=== PATIENT | female | born 1945 | race Caucasian/White ===

== ENCOUNTER 2016-06-20 05:26 | Day surgery (SDC) | payer MEDICARE, BC ==
[~2016-06-20] VITALS: Ht 167.6 cm; Wt 64.8 kg
[~2016-06-20 05:26] MED LIST: CIPRO 500MG TA500 MG PO; CIPRO PO; NO HOME MEDICATIONS; NORCO 325 MG-7.1 TAB PO; [UNRECOGNIZED DRUG - OTHER]
[2016-06-20 06:10] VITALS: BP 105/67; PULSE 72; TEMP 97.9
[2016-06-20] MEDS ORDERED: CIPRO 500MG TA500 MG PO (06:13)
[2016-06-20 07:41] VITALS: TEMP 98.2
[2016-06-20 08:00] VITALS: BP 110/68; PULSE 57
[2016-06-20 08:15] VITALS: BP 128/64; PULSE 51
[2016-06-20 08:30] VITALS: BP 112/66; PULSE 57
== END 2016-06-20 08:35 | disposition home or self-care (01) ==
LOC: SDCO 05:26
DX: N13.5 Crossing vessel and stricture of ureter without hydronephrosis (principal); Z85.3 Personal history of malignant neoplasm of breast; Z85.038 Personal history of other malignant neoplasm of large intestine
CPT/HCPCS: C1769; C2617; J0690; J1100; J1885; J2405; J2704; J3010; J7120; Q9967

== ENCOUNTER → 2016-08-29 | Outpatient (CLI) | payer MEDICARE, BC | LOC: MC.RAD 07:30 | DX: C50.412 Malignant neoplasm of upper-outer quadrant of left female breast (principal); I10 Essential (primary) hypertension ==

== ENCOUNTER 2016-11-04 06:19 | Day surgery (SDC) | payer MEDICARE, BC ==
[~2016-11-04] VITALS: Ht 168.9 cm; Wt 61.1 kg
[2016-11-04 07:09] VITALS: BP 104/73; PULSE 81; TEMP 97.4
[2016-11-04 08:17] VITALS: BP 103/71; PULSE 80; TEMP 97.1
[2016-11-04 08:32] VITALS: BP 101/70; PULSE 78
[2016-11-04 08:47] VITALS: BP 97/66; PULSE 79
== END 2016-11-04 09:00 | disposition home or self-care (01) ==
LOC: SDCO 06:19
DX: Z12.11 Encounter for screening for malignant neoplasm of colon (principal); K62.89 Other specified diseases of anus and rectum; K62.4 Stenosis of anus and rectum; D50.0 Iron deficiency anemia secondary to blood loss (chronic); Z96.0 Presence of urogenital implants; Z90.12 Acquired absence of left breast and nipple; Z87.891 Personal history of nicotine dependence; Z85.3 Personal history of malignant neoplasm of breast; Z82.3 Family history of stroke; Z80.3 Family history of malignant neoplasm of breast
CPT/HCPCS: OP; J2250; J2405; J3010; J7030

== ENCOUNTER → 2017-02-02 | Outpatient (CLI) | payer MEDICARE, BC | LOC: MC.RAD 07:40 | DX: Z12.31 Encounter for screening mammogram for malignant neoplasm of breast (principal); I10 Essential (primary) hypertension; Z98.890 Other specified postprocedural states; Z85.3 Personal history of malignant neoplasm of breast ==

== ENCOUNTER 2017-05-07 05:24 | Day surgery (SDC) | payer MEDICARE, BC ==
[~2017-05-07] VITALS: Ht 167.6 cm; Wt 64.4 kg
[2017-05-07 06:06] VITALS: BP 125/78; PULSE 81; TEMP 98.3
[2017-05-07] MEDS ORDERED: CIPRO 500MG TA500 MG PO (06:11)
[2017-05-07 08:00] VITALS: BP 117/79; PULSE 86; TEMP 98.8
[2017-05-07 08:15] VITALS: BP 119/80; PULSE 80
[2017-05-07 08:30] VITALS: BP 119/72; PULSE 80
== END 2017-05-07 09:03 | disposition home or self-care (01) ==
LOC: SDCO 05:24
DX: N13.5 Crossing vessel and stricture of ureter without hydronephrosis (principal); Z90.49 Acquired absence of other specified parts of digestive tract; Z85.3 Personal history of malignant neoplasm of breast; Z85.048 Personal history of other malignant neoplasm of rectum, rectosigmoid junction, and anus; Z92.3 Personal history of irradiation; Z88.1 Allergy status to other antibiotic agents; Z68.22 Body mass index [BMI] 22.0-22.9, adult; D64.9 Anemia, unspecified
CPT/HCPCS: C1769; C2617; J0690; J1100; J2405; J2704; J3010; J7120

== ENCOUNTER 2018-01-08 05:33 | Day surgery (SDC) | payer MEDICARE, BC ==
[~2018-01-08] VITALS: Ht 167.6 cm; Wt 62.3 kg
[2018-01-08] MEDS ORDERED: FERROUS SULFATE PO (05:49)
[2018-01-08 05:50] VITALS: BP 109/64; PULSE 73; TEMP 98
[2018-01-08 08:10] VITALS: BP 112/66; PULSE 59; TEMP 97.5
[2018-01-08 08:25] VITALS: BP 117/72; PULSE 65
[2018-01-08 08:40] VITALS: BP 109/68; PULSE 71
== END 2018-01-08 08:45 | disposition home or self-care (01) ==
LOC: SDCO 05:33
DX: N13.1 Hydronephrosis with ureteral stricture, not elsewhere classified (principal); D64.9 Anemia, unspecified; Z90.49 Acquired absence of other specified parts of digestive tract; Z88.0 Allergy status to penicillin; Z87.891 Personal history of nicotine dependence; Z85.038 Personal history of other malignant neoplasm of large intestine; Z92.3 Personal history of irradiation; Z85.3 Personal history of malignant neoplasm of breast; Z85.048 Personal history of other malignant neoplasm of rectum, rectosigmoid junction, and anus; Z83.3 Family history of diabetes mellitus
CPT/HCPCS: C1769; C2617; J0690; J2405; J2704; J3010; J7120

== ENCOUNTER → 2018-02-08 | Outpatient (CLI) | payer MEDICARE, BC ==
[~2018-02-08] MED LIST changes: +FERROUS SULFATE PO
== END ==
LOC: MC.RAD 06:55
DX: Z12.31 Encounter for screening mammogram for malignant neoplasm of breast (principal); C20 Malignant neoplasm of rectum

== ENCOUNTER 2018-11-10 05:25 | Day surgery (SDC) | payer MEDICARE, BC ==
[~2018-11-10] VITALS: Ht 167.6 cm; Wt 62.3 kg
[2018-11-10 05:47] VITALS: BP 107/71; PULSE 70; TEMP 97.6
[2018-11-10] MEDS ORDERED: NOVAFERRUM15 MG/1 ML PO (05:59)
[2018-11-10 08:30] VITALS: BP 127/76; PULSE 54; TEMP 97.3
--- NOTE | 2018-11-10 08:30 | NUR ---
The patient arrived back to [facility] from the recovery room at this time. The patient appears alert and oriented and denies any pain or nausea at this time. The patient tried some water in PACU and appeared to tolerate it well. The patient denies wanting anything further to eat or drink at this time. The patient's post operative vital signs were started at this time. The patient voices a desire to ambulate to the bathroom. She did so with the stand by assistance of one nurse and appeared to tolerate the activity well. The patient voided without difficulty. The patient's was brought back to be at her bedside. Will continue to monitor the patient.
--- NOTE | 2018-11-10 08:45 | NUR ---
The patient is sitting up on the side of the cart and appears to be resting comfortably. The patient voices a desire to be discharged home.
[2018-11-10 08:46] VITALS: BP 126/69; PULSE 53; TEMP 97.4
--- NOTE | 2018-11-10 08:55 | NUR ---
Discharge instructions were reviewed with the patient and her . They both verbalized understanding and have no questions for the nurse at this time. The patient's IV to her left wrist was removed and a pressure dressing was applied to the site. The patient is dressed and ready to be escorted out.
[2018-11-10 08:56] VITALS: BP 124/68; PULSE 54
--- NOTE | 2018-11-10 08:58 | NUR ---
The patient requested to ambulate out independently escorted by VIRY Handley using a steady gait and appeared to tolerate the activity well. The patient's belongings and discharge paperwork were sent with her. The patient's is present to drive her home.
== END 2018-11-10 08:58 | disposition home or self-care (01) ==
LOC: SDCO 05:25
DX: N13.5 Crossing vessel and stricture of ureter without hydronephrosis (principal); Z87.891 Personal history of nicotine dependence; D64.9 Anemia, unspecified; Z85.3 Personal history of malignant neoplasm of breast; Z85.048 Personal history of other malignant neoplasm of rectum, rectosigmoid junction, and anus; Z92.3 Personal history of irradiation; Z88.1 Allergy status to other antibiotic agents; Z79.899 Other long term (current) drug therapy
CPT/HCPCS: C1769; C2617; J0690; J1100; J2405; J2704; J3010; J7120

== ENCOUNTER → 2019-01-31 | Outpatient (CLI) | payer MEDICARE, BC ==
[~2019-01-31] MED LIST changes: +NOVAFERRUM15 MG/1 ML PO
== END ==
LOC: MC.RAD 08:59
DX: Z12.31 Encounter for screening mammogram for malignant neoplasm of breast (principal)

== ENCOUNTER 2019-07-28 05:22 | Day surgery (SDC) | payer MEDICARE, BC ==
[~2019-07-28] VITALS: Ht 167.6 cm; Wt 64.4 kg
[2019-07-28 05:41] VITALS: BP 106/76; PULSE 79; TEMP 98.3
--- NOTE | 2019-07-28 07:20 | NUR ---
Patient to the OR with GEMMA Haas at this time.
[2019-07-28 08:20] VITALS: BP 118/76; PULSE 56; TEMP 97.3
--- NOTE | 2019-07-28 08:20 | NUR ---
Patient arrives to [facility] [place] [facility] via cart for post-operative recovery, accompanied by LIVESTOCK FARMER Leah. She is sitting up in bed, alert and oriented. She denies pain or nausea. Monitoring is applied -VSS and WNL on room air. She is offered and receives a muffin, water, and juice. She states "I'm ready to go". Discharge plan is discussed. Will continue to monitor.
[2019-07-28 08:26] VITALS: TEMP 97.3
[2019-07-28 08:35] VITALS: BP 129/38; PULSE 60
--- NOTE | 2019-07-28 08:35 | NUR ---
Patient is escorted to the restroom by staff. She voids and returns to room.
[2019-07-28 08:50] VITALS: BP 117/62; PULSE 74
--- NOTE | 2019-07-28 08:50 | NUR ---
VSS on room air. Denies pain, nausea, or need.
--- NOTE | 2019-07-28 09:15 | NUR ---
Patient has met discharge criteria. Discharge instructions are discussed. She denies any questions and verbalizes understanding. PIV is removed with catheter intact and hemostasis achieved. She changes to her clothing independently. She is escorted to the exit via wheelchair. She is discharged to home with ride in private vehicle at 0915.
== END 2019-07-28 09:15 | disposition home or self-care (01) ==
LOC: SDCO 05:22
DX: N13.5 Crossing vessel and stricture of ureter without hydronephrosis (principal); Z90.89 Acquired absence of other organs; Z85.3 Personal history of malignant neoplasm of breast; Z88.1 Allergy status to other antibiotic agents
CPT/HCPCS: C1769; C2617; J0690; J1100; J1885; J2405; J2704; J7120

== ENCOUNTER → 2020-02-02 | Outpatient (CLI) | payer MEDICARE, BC | LOC: MC.RAD 08:18 | DX: Z12.31 Encounter for screening mammogram for malignant neoplasm of breast (principal); Z85.3 Personal history of malignant neoplasm of breast ==

== ENCOUNTER 2020-05-10 05:52 | Day surgery (SDC) | payer MEDICARE, BC ==
[~2020-05-10] VITALS: Ht 167.6 cm; Wt 61.9 kg
[2020-05-10 07:07] VITALS: BP 123/73; PULSE 77; TEMP 97.5
[2020-05-10 09:10] VITALS: BP 114/63; PULSE 61
--- NOTE | 2020-05-10 09:10 | NUR ---
Patient returns to room 6 per cart from PACU accompanied by Kristal MENENDEZ and is awake and alert. IV fluids infusing. Denies pain or nausea. Given muffin and water to drink. Temp 97.2 and room air sats 100%.
[2020-05-10 09:16] VITALS: TEMP 97.2
[2020-05-10 09:25] VITALS: BP 116/65; PULSE 63
--- NOTE | 2020-05-10 09:25 | NUR ---
Resting and tolerates snack.
--- NOTE | 2020-05-10 09:30 | NUR ---
Assisted up to the bathroom and voids. Gait steady.
--- NOTE | 2020-05-10 09:50 | NUR ---
IV was discontinued and site is free of redness. Patient dresses self and ready for discharge.
--- NOTE | 2020-05-10 09:58 | NUR ---
Admitted to room 4 ambulatory accompanied by friend and states that she is here to have her appendix removed by Dr. Martin. Oriented to room. Provided gown and warm blankets.
--- NOTE | 2020-05-10 11:34 | NUR ---
Medicated with Fentanyl 25mcg for complaints of right lower quadrant pain. States that she is unable to get comfortable.
--- NOTE | 2020-05-10 12:38 | NUR ---
Fentanyl 25mcg repeated for complaints of pain. Friend in room.
== END 2020-05-10 09:50 | disposition home or self-care (01) ==
LOC: SDCO 05:52
DX: N13.1 Hydronephrosis with ureteral stricture, not elsewhere classified (principal); Z85.3 Personal history of malignant neoplasm of breast; Z85.048 Personal history of other malignant neoplasm of rectum, rectosigmoid junction, and anus; Z90.49 Acquired absence of other specified parts of digestive tract; Z92.3 Personal history of irradiation; Z87.891 Personal history of nicotine dependence; Z85.038 Personal history of other malignant neoplasm of large intestine
CPT/HCPCS: C1769; C2617; J0690; J1100; J2405; J2704; J3010; J7120

== ENCOUNTER 2021-01-10 05:22 | Day surgery (SDC) | payer MEDICARE, BC ==
[~2021-01-10] VITALS: Ht 167.6 cm; Wt 62.3 kg
[2021-01-10 06:03] VITALS: BP 119/71; PULSE 75; TEMP 97.8
[2021-01-10 08:20] VITALS: BP 108/63; PULSE 67; TEMP 98.6
--- NOTE | 2021-01-10 08:20 | NUR ---
Pt returns to [place] [facility] from PACU, awake and alert and tolerating ice water well. Denies pain or nausea. Muffin provided and call light in reach. Nikolay at bedside. VSS.
[2021-01-10 08:35] VITALS: BP 115/76; PULSE 81
--- NOTE | 2021-01-10 08:35 | NUR ---
Pt tolerated muffin well and wants to go to the bathroom and then go home. VSS. Denies pain or nausea. Up to the bathroom without difficulty and voids reports urine light pink. Discharge instructions provided to pt and her brings the car around and she is taken out via wheelchair at 0855.
== END 2021-01-10 08:55 | disposition home or self-care (01) ==
LOC: SDCO 05:22
DX: N13.1 Hydronephrosis with ureteral stricture, not elsewhere classified (principal); D64.9 Anemia, unspecified; Z79.899 Other long term (current) drug therapy; Z87.891 Personal history of nicotine dependence; Z92.21 Personal history of antineoplastic chemotherapy; Z85.038 Personal history of other malignant neoplasm of large intestine; Z85.3 Personal history of malignant neoplasm of breast; Z90.49 Acquired absence of other specified parts of digestive tract; Z90.89 Acquired absence of other organs
CPT/HCPCS: C1769; C2617; J0690; J1100; J2405; J2704; J3010; J7120

== ENCOUNTER → 2021-02-12 | Outpatient (CLI) | payer MEDICARE, BC | LOC: MC.RAD 02-04 09:30 | DX: Z12.31 Encounter for screening mammogram for malignant neoplasm of breast (principal) ==

== ENCOUNTER 2021-08-02 05:24 | Day surgery (SDC) | payer MEDICARE, BC ==
[~2021-08-02] VITALS: Ht 167.6 cm; Wt 58.9 kg
[2021-08-02 05:49] VITALS: BP 100/73; PULSE 82; TEMP 97.8
[2021-08-02 07:48] VITALS: TEMP 97.8
[2021-08-02 08:00] VITALS: BP 100/64; PULSE 69
--- NOTE | 2021-08-02 08:00 | NUR ---
PATIENT RETURNS TO ROOM 8 PER CART FROM PACU ACCOMPANIED BY PIA MENENDEZ AND PATIENT IS AWAKE AND ALERT. IV FLUIDS INFUSING AND SITE IS FREE OF REDNESS OR SWELLING. SPOUSE IN ROOM. SIDERAILS UP X2 AND CALL LIGHT IN REACH. DR. PENA TALKED WITH SPOUSE AND ALL QUESTIONS ANSWERED. PATIENT IS TAKING ICE CHIPS.
[2021-08-02 08:15] VITALS: BP 104/61; PULSE 66
--- NOTE | 2021-08-02 08:15 | NUR ---
PATIENT STATES SHE WANTS TO GO HOME. WAS GIVEN MUFFIN TO EAT AND JUICE TO DRINK. DENIES NAUSEA.
--- NOTE | 2021-08-02 08:23 | NUR ---
IV TO INT. ASSISTED UP TO THE BATHROOM. GAIT STEADY. VOIDS AND RETURNS TO ROOM. INT WAS DISCONTINUED AND SITE IS FREE OF REDNESS OR SWELLING.
--- NOTE | 2021-08-02 08:35 | NUR ---
PATIENT IS DRESSED AND DISMISSAL INSTRUCTIONS WERE GIVEN. VOICES UNDERSTANDING OF THESE.
--- NOTE | 2021-08-02 08:37 | NUR ---
PATIENT DISMISSED TO HOME PER PRIVATE VEHICLE DRIVEN BY SPOUSE AND TAKEN TO CAR BY WHEELCHAIR BY MARCIO MENENDEZ. DISMISSED TO HOME WITH INSTRUCTIONS IN HAND AND PROVIDED OFFICE NUMBER FOR QUESTIONS AND CONCERNS.
== END 2021-08-02 08:37 | disposition home or self-care (01) ==
LOC: SDCO 05:24
DX: N13.1 Hydronephrosis with ureteral stricture, not elsewhere classified (principal)
CPT/HCPCS: C1769; C2617; J0690; J1100; J2405; J2704; J3010; J7120

== ENCOUNTER 2022-04-09 05:26 | Day surgery (SDC) | payer MEDICARE, BC ==
[~2022-04-09] VITALS: Ht 167.6 cm; Wt 54.0 kg
[2022-04-09 06:40] VITALS: BP 118/73; PULSE 97; TEMP 97.8
[2022-04-09 08:41] VITALS: TEMP 97.4
[2022-04-09 08:45] VITALS: BP 97/63; PULSE 100
[2022-04-09 09:00] VITALS: BP 94/59; PULSE 76
[2022-04-09 09:10] VITALS: BP 98/59; PULSE 76
--- NOTE | 2022-04-09 09:10 | NUR ---
0845 RETURNS TO ROOM 8 PER CART. AWAKE, ALERT. RESP CLEAR, UNLABORED. HOB ELEVATED 60 DEGREES. DENIES PAIN OR URINARY URGENCY. VITAL SIGNS OBTAINED. CALL LIGHT AT SIDE. HERE. 0850 DISCHARGE INSTRUCTIONS REVIEWED. PATIENT AND VERBALIZE UNDERSTANDING. COPY PROVIDED IN DISCHARGE FOLDER. 0900 TOLERATES PO JUICE WITHOUT NAUSEA. EXPRESSES EAGERNESS TO BE DISCHARGED. 0905 SITS ON EDGE OF CART DRESSES SELF
== END 2022-04-09 09:12 | disposition home or self-care (01) ==
LOC: SDCO 05:26
DX: N13.1 Hydronephrosis with ureteral stricture, not elsewhere classified (principal)
CPT/HCPCS: C1769; C2617; J0690; J2704; J3010; J7120

== ENCOUNTER 2022-05-20 11:20 | Outpatient (RCR) | payer MEDICARE, BC ==
[2022-05-20] VITALS (9 sets, daily range): BP systolic 98–115; BP diastolic 64–80; PULSE 80–117; TEMP 97.9–98.4
[~2022-05-20] VITALS: Ht 167.6 cm; Wt 53.6 kg
== END 2022-05-20 17:20 ==
LOC: EUO 11:20
DX: C20 Malignant neoplasm of rectum (principal); D50.9 Iron deficiency anemia, unspecified
CPT/HCPCS: J7050; P9016

== ENCOUNTER → 2022-07-14 | Outpatient (CLI) | payer MEDICARE, BC | LOC: COL.RAD 07:49 | DX: R91.1 Solitary pulmonary nodule (principal); K59.00 Constipation, unspecified; N13.30 Unspecified hydronephrosis; N13.4 Hydroureter; Z96.0 Presence of urogenital implants; R63.4 Abnormal weight loss; Z85.048 Personal history of other malignant neoplasm of rectum, rectosigmoid junction, and anus | CPT/HCPCS: Q9967 ==

== ENCOUNTER → 2022-07-25 | Outpatient (CLI) | payer MEDICARE, BC ==
[~2022-07-25] VITALS: Ht 167.6 cm; Wt 48.5 kg
[2022-07-25] VITALS (11 sets, daily range): BP systolic 95–113; BP diastolic 62–77; PULSE 90–134; TEMP 98
[~2022-07-25] MED LIST changes: +FLAGYL 250250 MG/TAB PO
== END ==
LOC: COL.RAD 13:15
DX: K62.89 Other specified diseases of anus and rectum (principal)
CPT/HCPCS: 32109

== ENCOUNTER 2022-08-04 09:19 | Inpatient (IN) | payer MEDICARE, BC ==
[~2022-08-04] VITALS: Ht 167.6 cm; Wt 44.0 kg
[2022-08-05] VITALS (11 sets, daily range): BP systolic 84–109; BP diastolic 53–70; PULSE 83–121; TEMP 97.4–97.8
[2022-08-05] MEDS ORDERED: FERROUS SU220 MG/5 M PO (08:06)
[2022-08-05 08:13] LABS: MEAN CELL VOLUME 81 fl (80.0-100.0); MEAN CORPUSCULAR HGB CONC 30 g/dl (33.0-37.0); PLATELET COUNT 574 K/mm3 (130-400); REDCELL DISTRIBUTION WIDTH-CV 23.6 % (11.5-14.5)
[2022-08-05 08:18] LABS: CALCIUM 8.6 mg/dL (8.4-10.2); CREATININE, serum 0.65 mg/dL (0.57-1.11); POTASSIUM 3.7 mmol/L (3.5-4.5)
[2022-08-05 08:33] LABS: HEMATOCRIT 27.6 % (37.0-47.0); HEMOGLOBIN 8.2 g/dl (12.5-16.0); MEAN CORPUSCULAR HEMOGLOBIN 24 pg (27-31)
--- NOTE | 2022-08-05 12:05 | NUR ---
pt brought to room from pacu. pt a&ox4. and two daughters are at bedside. pt reports pain a 5/10 but does not need medication and reports nausea at a tolerable level as well. vss and tele in place. colostomy in place. x3 lap incisions are cdi w bandaids. miles to dd w yellow cloudy urine output. fluids infusing into right wrist IV. pt denies needs at this time. call light in reach.
--- NOTE | 2022-08-05 14:13 | NUR ---
contacted dr boo about pt bp of 84/59. orders for 250ml NS fluid bolus and will continue to monitor. pt very petite and normally has low blood pressure.
--- NOTE | 2022-08-05 16:00 | NUR ---
notifed dr boo about blood bank questioning transfusion order due to hgb of 8.2. he would like for pt to have transfusion but is ok to monitor pts symptoms and recheck labs in morning.
--- NOTE | 2022-08-05 16:41 | NUR ---
pt having liquid stool from rectum, still no output from colostomy.
--- NOTE | 2022-08-05 20:45 | NUR ---
PATIENT IS RESTING IN BED.PATIENT DENIES PAIN.COLOSTOMY BAG IS NOT ACTIVE.IV FLUIDS ON GOOD PROGRESS.PATIENT IS HARD OF HEARING.FLLEY CATHETER IS DRAINING URINE FREELY.SAFETY MEASURES IN PLACE.NO OTHER NEEDS AT THIS TIME.
[2022-08-06] VITALS (16 sets, daily range): BP systolic 90–108; BP diastolic 49–69; PULSE 68–125; TEMP 97.3–98.6
--- NOTE | 2022-08-06 06:08 | NUR ---
PATIENT DENIES PAIN.IV FLUIDS STILL IN PROGRESS.COLOSTOMY BAG STILL NOT ACTIVE.SAFETY MEASURES IN PLACE.NO OTHER NEEDS AT THIS TIME.
[2022-08-06 06:26] LABS: BASO # 0.1 K/mm3 (0.0-0.2); BASO % 0.4 % (0.0-2.0); EOS % 0.1 % (0.0-4.0); GRAN # 11.2 K/mm3 (1.4-6.5); GRAN % 89.9 % (42.2-75.2); LYMPH # 0.5 K/mm3 (1.2-3.4); LYMPH % 3.9 % (20.0-51.0); MEAN CELL VOLUME 81 fl (80.0-100.0); MEAN CORPUSCULAR HGB CONC 31 g/dl (33.0-37.0); MEAN PLATELET VOLUME 8.2 fl (7.4-10.4); MONO # 0.6 K/mm3 (0.1-0.6); PLATELET COUNT 485 K/mm3 (130-400); RED BLOOD COUNT 2.67 M/mm3 (4.10-5.30); REDCELL DISTRIBUTION WIDTH-CV 23.3 % (11.5-14.5)
[2022-08-06 06:40] LABS: CALCIUM 7.9 mg/dL (8.4-10.2); CREATININE, serum 0.58 mg/dL (0.57-1.11); POTASSIUM 4.1 mmol/L (3.5-4.5)
[2022-08-06 06:43] LABS: HEMATOCRIT 21.5 % (37.0-47.0); HEMOGLOBIN 6.6 g/dl (12.5-16.0); MEAN CORPUSCULAR HEMOGLOBIN 25 pg (27-31)
--- NOTE | 2022-08-06 08:26 | NUR ---
Pt. sitting up in bed. Pt. is A&OX3, assessment complete. IV to rt. wrist patent. Pt. denies pain. Stoma to lt. abd. noted not stool at this time. stoma is beefy. Pt. requiring 1 unit PRBC's. Unit started at this time. Discussed Transfusion reactions and side effects with the pt. Pt. voices understanding. Will remain at bedside for next 15 minutes.
--- NOTE | 2022-08-06 09:48 | NUR ---
Initial visit; Patient [id number] and states she appreciates Oil And Gas Recruiter stopping by though her Senior Business Intelligence Analyst will likely be here for a visit this morning.
[2022-08-06 12:22] LABS: HEMATOCRIT 25.9 % (37.0-47.0); HEMOGLOBIN 8.1 g/dl (12.5-16.0)
--- NOTE | 2022-08-06 13:27 | NUR ---
The patient's , Nikolay (ph#[phone]), approached the nurses station. He would like to set up a meeting with this SW, once his daughters arrive. A meeting was scheduled at 1145. ALANNAH met with Nikolay to complete intake. The patient lives in [place] with Nikolay. Nikolay reports that the patient is independent with ADLs and does not have any DME. The patient's PCP is Dr. Thomas Nava. The patient does not have a DPOA-HC in EMR, but Nikolay states that the patient does have one completed and that it designates him and then their daughters. The patient now has a stoma/colostomy. ALANNAH discussed home health services upon discharge for further education and care for the colostomy when they return home. Nikolay is interested in home health. ALANNAH provided him with Medicare.gov's list of home health agencies that serve [place]. The patient states that a family friend had [facility], but he would like to follow up with his daughters on preference. ALANNAH staffed with the patient's RN and obtained measurements for the stoma and colostomy bag. ALANNAH also coordinated with the RN for the patient to be given some extra colostomy and stoma supplies upon discharge, to hold over until home health can supply it. ALANNAH then met with the patient, her , and daughters to review discharge plan. PT worked with the patient and recommend home health. ALANNAH discussed home health vs SNF. The patient would like to pursue with going home with home health. After further review of the Medicare.gov list and from friend recommendations, the patient's family chose [facility]. ALANNAH answered all questions. ALANNAH attempted to contact Mike at [facility]. ALANNAH left him a voicemail and faxed over the referral. Awaiting response. *Discharge plan: home with and family support and home health*
--- NOTE | 2022-08-06 14:04 | NUR ---
Mike, at [facility], reports that they are able to accept the patient and that they actually have an ostomy nurse. He states that they have all the supplies in stock.
--- NOTE | 2022-08-06 20:00 | NUR ---
PATIENT IS ORIENTED BUT DROWSY. PATIENT REPORTS WEAKNESS & DIZZINESS WITH AMBULATION TO BATHROOM. NOTED INCONTIENT ANAL LEAKAGE. NO STOOL OR FLATUS NOTED IN COLOSTOMY BAG. ABD IS ROUND AND WITH HYPO ACTIVE BOWLS. NO C/O N/V. TOLERATING GENERAL DIET BUT EATS LIKE A BIRD AT BASELINE, REPORTED BY FAMILY TO DAY SHIFT NURSE. NOTED SOFT PRESSURES AND HGB OF 6.6, RECEIVED 1 UNIT OF PRBC TODAY. HR 90-110 ON TELE. AFEBRILE. RIGHT WRIST IV TO INT. HEAD TO TOE ASSESSMENT COMPLETE. SCD'S TO BLE. NO OTHER NEEDS AT THIS TIME. CALL LIGHT IN REACH. BED ALARM ON.
[2022-08-07] VITALS (11 sets, daily range): BP systolic 89–114; BP diastolic 57–84; PULSE 78–108; TEMP 96.4–98.3
--- NOTE | 2022-08-07 02:00 | NUR ---
PATIENT UNABLE TO VOID POST MORGAN REMOVAL. CALLED HOSPITALIST, ORDERS TO CATH X1. 450CC OF JUAN COLORED URINE DRAINED, PATIENT TOLERATED WELL.
[2022-08-07 07:44] LABS: MEAN CELL VOLUME 83 fl (80.0-100.0); MEAN CORPUSCULAR HGB CONC 31 g/dl (33.0-37.0); MEAN PLATELET VOLUME 7.9 fl (7.4-10.4); PLATELET COUNT 424 K/mm3 (130-400); RED BLOOD COUNT 3.14 M/mm3 (4.10-5.30); REDCELL DISTRIBUTION WIDTH-CV 22.7 % (11.5-14.5)
[2022-08-07 07:48] LABS: MEAN CORPUSCULAR HEMOGLOBIN 25 pg (27-31)
[2022-08-07 08:01] LABS: CALCIUM 7.8 mg/dL (8.4-10.2); CREATININE, serum 0.55 mg/dL (0.57-1.11); POTASSIUM 3.7 mmol/L (3.5-4.5)
--- NOTE | 2022-08-07 08:43 | NUR ---
Pt. up washing hands at this time. Pt. then went to the restroom again and was able to urinate at this time. Pt. then ambulated to the sink and back to bed. Pt. is A&OX3, assessment complete. INT to rt. wrist patent. Pt. denies pain. Scant amount of mucous drainage to ostomy bag. Bowel sounds audible. Pt. denies pain or other needs, call light within reach.
--- NOTE | 2022-08-07 14:44 | NUR ---
SW met with the patient and her daughter and updated them on [facility]'s acceptance. The patient and her daughter had no additional questions or concerns for SW at this time.
--- NOTE | 2022-08-07 19:30 | NUR ---
Patient up to the bathroom, this nurse encouraged to walk to the hallway but said "im exhausted, been nauseous this whole afternoon". Noted small ulcer to the right butt cheek area, patient went back to bed and repositioned patient to her right side, patient's daughter at bedside at this time. Patient rated her abdominal pain at 3/4, denies the need for any pain meds at this time, head to to assessment done, see shift assessment, with IV infusing well on left forearm, LR running at 75cc/hr, with colostomy bag intact, denies further needs, call light and personal items within reach, will continue to monitor.
[2022-08-08] VITALS (33 sets, daily range): BP systolic 77–107; BP diastolic 45–75; PULSE 63–103; TEMP 97.5–98.4
--- NOTE | 2022-08-08 03:15 | NUR ---
Patient's heart rate was in between 110-150's and not complaining of chest pain or discomfort, called Ilia, the PA at 199 and received an order for EKG, called Ilia again to inform him about the latest BP which is 100/75 and the RT is doing the EKG at this time. Ilia came to the nurse station at 224 and check the EKG result which is afib with RVR, received orders for magnesium, metoprolol and NS at 229. At 2039, this nurse still waiting for the meds to get it verified. At 254 called the oncall pharmacist and meds have verified.
--- NOTE | 2022-08-08 05:05 | NUR ---
Called Ilia, the PA again at 0456 d/t patient's hr is still on a high side and still on afib. At 0500, Ilia came in to see the patient. Received an order for albumin and fluids. BP is 91/45.
--- NOTE | 2022-08-08 06:14 | NUR ---
Received a call at 0530 from the hide house supervisor that Ilia, the PA ordered to give amiodarone. At 0540 patient was 77/40, put patient in trendelenburg position, Ilia came to the patient's room, denies chest pain, amiodarone, fluids and albumin ongoing at this time, continuously monitored the vitals.
[2022-08-08 06:39] LABS: MEAN CELL VOLUME 83 fl (80.0-100.0); MEAN CORPUSCULAR HGB CONC 31 g/dl (33.0-37.0); MEAN PLATELET VOLUME 8.2 fl (7.4-10.4); PLATELET COUNT 414 K/mm3 (130-400); REDCELL DISTRIBUTION WIDTH-CV 22.6 % (11.5-14.5)
[2022-08-08 06:40] LABS: HEMATOCRIT 24.1 % (37.0-47.0); HEMOGLOBIN 7.5 g/dl (12.5-16.0); MEAN CORPUSCULAR HEMOGLOBIN 26 pg (27-31)
--- NOTE | 2022-08-08 06:40 | NUR ---
Received an order from Ilia to increase the LR rate to 100cc/hr. BP is better, report given to Ethan MENENDEZ.
[2022-08-08 06:46] LABS: CALCIUM 7.7 mg/dL (8.4-10.2); CREATININE, serum 0.49 mg/dL (0.57-1.11); POTASSIUM 3.5 mmol/L (3.5-4.5)
[2022-08-08 07:47] LABS: EOSINOPHIL 1 % (0-4); NEUTROPHILS 87 % (42.0-75.2)
[2022-08-08 07:49] LABS: PLATELET ESTIMATE NORMAL (NORMAL)
[2022-08-08 07:50] LABS: BURR CELLS 1+; HYPOCHROMIA 1+; OVALOCYTES 1+; SCHISTOCYTES 1+
[2022-08-08 07:51] LABS: LYMPHOCYTE 4 % (20.0-51.0)
--- NOTE | 2022-08-08 08:21 | NUR ---
PT SEEN BY BLAZE MEIER AT SHIFT CHANGE. NEW ORDERS RECIEVED AND IMPLEMENTED. PT AMBULATING IN HALLS WITH THERAPY. IN TO SEE PT THIS AM. PT REFUSING BREAKFAST AND PO IRON. AMNIO GTTS RUNNNING ORDERED. NS @ 100 MLS/HR.
--- NOTE | 2022-08-08 09:01 | NUR ---
CALLED VIRGINIA NUNEZ FOR , UPDATED ON OVERNIGHT EPISODE. PLAN ON GOING TO SURGERY LATER THIS PM. AVTAR WILL SEE PT PRIOR TO SURGERY. DR. DEAN IS OUT OF TOWN AND V[place]IA WILL CONTACT DR. REGALADO TO SEE PT.
--- NOTE | 2022-08-08 09:07 | NUR ---
DR. ESTRELLA AND VIRGINIA NUNEZ UPDATED ON PT.
--- NOTE | 2022-08-08 10:48 | NUR ---
ALANNAH staffed with the patient's RN. The patient is to have a cardioversion this morning and possibly return back to the OR this afternoon for revision of her colostomy. She is not ready for discharge and will likely be here through the weekend. ALANNAH notified Mike at [facility].
--- NOTE | 2022-08-08 11:06 | NUR ---
PT TO GRADUATE INTERNSHIP FOR CARDIOVERSION.
--- NOTE | 2022-08-08 15:51 | NUR ---
PT TO SURGERY PER BED WITH KATHERINE.
--- NOTE | 2022-08-08 17:56 | NUR ---
PT TO ROOM 347 PER BED WITH REPORT FROM ZENY MENENDEZ PACU. PT IS A/O X3 LUNGS CLEAR. COLOSTOMY CDI WITH APPLIANCE OVER STOMA. STOMA APPEARS BEEFY. MIN AMT IN APPLIANCE. VSS, PICC LINE TO AMRIK. FAMILY AT BEDSIDE.
--- NOTE | 2022-08-08 21:28 | NUR ---
Patient in bed, assessed patient at this time, still on post-op vital signs, with PICC to right upper arm infusing well, with amio drip infusing at 17.2ml/hr, with INT infusign well on left forearm, with colostomy, denies pain or discomfort, denies nausea or vomiting, denies further needs, call light and personal items within reach, needs attended, will continue to monitor.
[2022-08-09] VITALS (13 sets, daily range): BP systolic 93–115; BP diastolic 57–65; PULSE 57–74; TEMP 97.5–98.4
--- NOTE | 2022-08-09 02:31 | NUR ---
Removed and changed the mepilex dressing to bottom at this time.
--- NOTE | 2022-08-09 04:28 | NUR ---
Patient reading her book, amiodarone drip still infusing, LR still infusing as well, needs attended, denies pain or discomfort, denies further needs at this time.
--- NOTE | 2022-08-09 05:25 | NUR ---
Informed Ilia, the PA that amiodarone drip is already consumed, no new orders at this time.
--- NOTE | 2022-08-09 05:30 | NUR ---
Patient up to the bathroom assisted by the STACK YIELD ENGINEER, mepilex came off, applied a new one.
[2022-08-09 07:10] LABS: MEAN CELL VOLUME 84 fl (80.0-100.0); MEAN CORPUSCULAR HGB CONC 32 g/dl (33.0-37.0); MEAN PLATELET VOLUME 8.2 fl (7.4-10.4); PLATELET COUNT 345 K/mm3 (130-400); REDCELL DISTRIBUTION WIDTH-CV 21.6 % (11.5-14.5)
[2022-08-09 07:14] LABS: HEMATOCRIT 25.1 % (37.0-47.0); HEMOGLOBIN 7.9 g/dl (12.5-16.0); MEAN CORPUSCULAR HEMOGLOBIN 26 pg (27-31)
--- NOTE | 2022-08-09 07:22 | NUR ---
pt awake resting in bed. breakfast just arrived. pt requesting assistance to the bathroom. a small amount of leakage from rectum is present. mepilex in place on coccyx. vss and tele in place. colostomy producing minimal red tinged output, stoma pink, pt reports passing gas. PICC to AMRIK w fluids infusing, flushes well w good blood return. INT to left forearm. pt refusing iron this morning due to upsetting her stomach last dose. fall precautions in place. no other needs at this time. call light in reach.
[2022-08-09 07:29] LABS: CALCIUM 7.7 mg/dL (8.4-10.2); CREATININE, serum 0.55 mg/dL (0.57-1.11)
[2022-08-09 07:41] LABS: BAND 4 % (0-10); LYMPHOCYTE 2 % (20.0-51.0); NEUTROPHILS 92 % (42.0-75.2)
[2022-08-09 07:42] LABS: ANISOCYTOSIS 2+; HYPOCHROMIA 1+; PLATELET ESTIMATE NORMAL (NORMAL)
--- NOTE | 2022-08-09 08:50 | NUR ---
orders to irrigate colostomy. called charge OR nurse for orders from dr chaves for more clarification about how much to irrigate and stated to follow protocol. collaborated with charge nurse and datawarehouse developer to start w 250ml and increase 250ml if unsuccessful w a max amount of 1000ml irrigation. irrigation supplies unavailable in surgical supply room and were found in main supply room for hospital by datawarehouse developer.
--- NOTE | 2022-08-09 09:34 | NUR ---
this nurse assisted charge nurse, reinaldo in irrigating pts colostomy. 250mm or warm water inserted, will reassess in 30 min for output. pt denies pain w irrigation.
--- NOTE | 2022-08-09 10:44 | NUR ---
approximately 100cc of output in bag, another 250ml of irrigation into stoma. will recheck output in 30min. pt tolerated procedure
--- NOTE | 2022-08-09 10:54 | NUR ---
Pipe Stripper rounds: Patient had visitor - her . Patient has difficulty hearing. She stated that she was getting a new colostomy bag. stated that Manager Training And Development Zacarias Bran has visited them. Patient thanked Pipe Stripper for the offer of a visit. RN arrived to complete the colostomy bag change.
--- NOTE | 2022-08-09 13:10 | NUR ---
pt had increased stool and blood from rectum, about 100ml of output total after irrigation to stoma. pt reports that it is more blood than she normally has but denies feeling discomfort.
--- NOTE | 2022-08-09 13:57 | NUR ---
called dr chaves to update him on pt blood and bowel output, states the bloody stool is to be expected.
--- NOTE | 2022-08-09 20:30 | NUR ---
Patient reading her book, assessed at this time, see shift assessment, denies pain or discomfort, denies nausea, colostomy with appliance, no output at this time, denies further needs, call light and personal items within reach.
[2022-08-10] VITALS (10 sets, daily range): BP systolic 102–112; BP diastolic 60–70; PULSE 50–86; TEMP 97.5–98.2
--- NOTE | 2022-08-10 01:37 | NUR ---
Patient up to the bathroom, still having bloody stools, applied a barrier cream and new mepilex dressing to bottom, noted excoration and pressure sore, will continue to monitor, noted also some redness on midback area. Assisted patient back to bed, patient laying to left side at this time, will reposition patient regularly.
[2022-08-10 06:52] LABS: MEAN CELL VOLUME 85 fl (80.0-100.0); MEAN CORPUSCULAR HGB CONC 31 g/dl (33.0-37.0); PLATELET COUNT 377 K/mm3 (130-400); RED BLOOD COUNT 3.13 M/mm3 (4.10-5.30); REDCELL DISTRIBUTION WIDTH-CV 22.3 % (11.5-14.5)
[2022-08-10 07:06] LABS: HEMATOCRIT 26.6 % (37.0-47.0); HEMOGLOBIN 8.2 g/dl (12.5-16.0); MEAN CORPUSCULAR HEMOGLOBIN 26 pg (27-31)
[2022-08-10 07:11] LABS: CALCIUM 7.5 mg/dL (8.4-10.2); CREATININE, serum 0.53 mg/dL (0.57-1.11); POTASSIUM 3.7 mmol/L (3.5-4.5)
--- NOTE | 2022-08-10 07:36 | NUR ---
assisted pt to bathroom, still having bloody stool. minimal output out of colostomy. pt refusing iron. vss and tele in place. mepilex to coccyx. redness to back, cream and mepilex applied. PICC to rue flushes well w good blood return. no other needs this morning. at bedside, dr chaves in room. call light in reach.
[2022-08-10 07:53] LABS: BAND 5 % (0-10); EOSINOPHIL 2 % (0-4); HYPOCHROMIA 2+; LYMPHOCYTE 8 % (20.0-51.0); NEUTROPHILS 83 % (42.0-75.2); PLATELET ESTIMATE NORMAL (NORMAL)
[2022-08-10 07:54] LABS: ANISOCYTOSIS 3+
--- NOTE | 2022-08-10 22:55 | NUR ---
Assessment completed around 2100. A&Ox4. All medication given per emar. Pt states that abdominal pain is similar to a cramp, and that she doesn't need her pain med since the pain is tolerable. AMRIK PICC line and LFA INT are CDI. Midline and Abdominal colostomy incisions have edges well approximated, CDI open to air. Ostomy bag on LLQ is CDI. Pt continue having bloody liquid stools. New dressing placed on saccrum due to redness and small skin tear on R buttock. Fluids were not running at this time, although orders in emar to continue infusing at 60ml/hr. Called HARDEEP Valentine to clarify if pt could resume fluids; verbal orders received to resume IV fluids infusion. PICC line had good blood return. This OFFICE HELPER CLERICAL administered IV fluids with Kaylin Palma RN supervision. Belongings and call light are within reach.
[2022-08-11] VITALS (11 sets, daily range): BP systolic 105–121; BP diastolic 60–75; PULSE 62–74; TEMP 97.5–98.4
--- NOTE | 2022-08-11 08:06 | NUR ---
pt resting in bed, just finished breakfast. at bedside. pt reports some discomfort of feeling "full". she is passing gas and having some output in her colostomy. vss and tele in place. mepilex to coccyx and mid back to prevent skin breakdown. PICC to AMRIK w fluids infusing. call light in reach. no needs at this time.
--- NOTE | 2022-08-11 10:00 | NUR ---
pt ambulating in the halls
--- NOTE | 2022-08-11 20:58 | NUR ---
PATIENT IS RESTINGIN BED.PATIENT DENIES PAIN.PATIENT IS A SBA TO THE BATHROOM.PATIENT HAS MINIMUM LIQUID STOOL FROM THE RECTUM.COLOSTOMY BAG IS NOT ACTIVELY DRAINING.SAFETY MEASURES IN PLACE.NO OTHER NEEDS AT THIS TIME.
[2022-08-12 04:21] VITALS: BP 102/66; PULSE 52; TEMP 97.6
--- NOTE | 2022-08-12 06:23 | NUR ---
PATIENT IS ON IV FLUIDS INFUSING WELL.COLOSTOMY BAG NOT ACTIVE.PATIENT DENIES PAIN.NO OTHER NEEDS AT THIS TIME.
[2022-08-12 06:57] LABS: BASO % 0.4 % (0.0-2.0); EOS # 0.1 K/mm3 (0.0-0.7); EOS % 1.1 % (0.0-4.0); GRAN # 7.7 K/mm3 (1.4-6.5); GRAN % 89.3 % (42.2-75.2); HEMATOCRIT 26.7 % (37.0-47.0); HEMOGLOBIN 8.4 g/dl (12.5-16.0); LYMPH # 0.3 K/mm3 (1.2-3.4); LYMPH % 3.9 % (20.0-51.0); MEAN CELL VOLUME 84 fl (80.0-100.0); MEAN CORPUSCULAR HEMOGLOBIN 26 pg (27-31); MEAN CORPUSCULAR HGB CONC 32 g/dl (33.0-37.0); MEAN PLATELET VOLUME 8.2 fl (7.4-10.4); MONO # 0.4 K/mm3 (0.1-0.6); MONO % 4.4 % (1.7-9.3); PLATELET COUNT 374 K/mm3 (130-400); RED BLOOD COUNT 3.19 M/mm3 (4.10-5.30); REDCELL DISTRIBUTION WIDTH-CV 22.2 % (11.5-14.5)
[2022-08-12 07:17] LABS: CALCIUM 7.6 mg/dL (8.4-10.2); CREATININE, serum 0.54 mg/dL (0.57-1.11); MAGNESIUM 1.7 mg/dL (1.6-2.6)
[2022-08-12 07:19] LABS: POTASSIUM 2.7 mmol/L (3.5-4.5)
--- NOTE | 2022-08-12 07:25 | NUR ---
Potassium called to HARDEEP Castrejon. new orders recieved.
[2022-08-12 07:41] VITALS: BP 109/67; PULSE 69; TEMP 98.9
[2022-08-12 07:50] VITALS: BP_SYST 109
[2022-08-12] MEDS ORDERED: PREMIER DRAINA MC (07:50)
[2022-08-12] MEDS ORDERED: [UNRECOGNIZED DRUG - OTHER] MC (07:53)
[2022-08-12 11:47] VITALS: BP 114/66; PULSE 75; TEMP 98.1
[2022-08-12 14:22] VITALS: BP_SYST 114
[2022-08-12 14:23] LABS: CALCIUM 7.6 mg/dL (8.4-10.2); CREATININE, serum 0.56 mg/dL (0.57-1.11); POTASSIUM 3.7 mmol/L (3.5-4.5)
[2022-08-12] MEDS ORDERED: ZOFRAN 4MG T4 MG/TAB PO (15:10)
[2022-08-12] MEDS ORDERED: PACERONE200 MG PO (15:10)
[2022-08-12] MEDS ORDERED: K-DUR20 MEQ PO (15:11)
[2022-08-12] MEDS ORDERED: MAG-OX 400400 MG/TAB PO (15:12)
--- NOTE | 2022-08-12 16:00 | NUR ---
Pt. ready for discharge. Ostomy care education completed with family. Pt. family able to demonstrate ostomy bag changing. Questions answered, supplies sent home with the pt. Discharge paperwork reviewed and given to the pt. and family. PICC line was removed by AIVS, 30 minutes flat time completed. Pt. escorted out by this nurse.
--- NOTE | 2022-08-12 16:01 | NUR ---
Him Manager faxed discharge order to [facility] and contacted Montez with [facility] to report Patient discharge.
[2022-08-12 16:30] VITALS: BP_SYST 114
== END 2022-08-12 17:00 | disposition home health service (06) | DRG 329 ==
LOC: SURG 09:30 → INPTSU 08-05 07:24 → SURG 08-05 09:30
PROVIDERS: Internal Medicine; Nurse Anesthetist, Certified Registered; Student in an Organized Health Care Education/Training Program; ADMIT Surgery
PROC: 0D1E4Z4 Bypass Large Intestine to Cutaneous, Percutaneous Endoscopic Approach (ICD-10-PCS; principal; 2022-08-05 09:30)
PROC: 30233N1 Transfusion of Nonautologous Red Blood Cells into Peripheral Vein, Percutaneous Approach (ICD-10-PCS; 2022-08-06)
PROC: 0DBE0ZZ Excision of Large Intestine, Open Approach (ICD-10-PCS; 2022-08-08)
PROC: 5A2204Z Restoration of Cardiac Rhythm, Single (ICD-10-PCS; 2022-08-08)
PROC: 02HV33Z Insertion of Infusion Device into Superior Vena Cava, Percutaneous Approach (ICD-10-PCS; 2022-08-08)
DX: K62.5 Hemorrhage of anus and rectum (principal); E43 Unspecified severe protein-calorie malnutrition; E87.1 Hypo-osmolality and hyponatremia; J90 Pleural effusion, not elsewhere classified; K56.600 Partial intestinal obstruction, unspecified as to cause; K94.03 Colostomy malfunction; I48.92 Unspecified atrial flutter; Z68.1 Body mass index [BMI] 19.9 or less, adult; D50.0 Iron deficiency anemia secondary to blood loss (chronic); K62.89 Other specified diseases of anus and rectum; I95.9 Hypotension, unspecified; I49.3 Ventricular premature depolarization; I48.0 Paroxysmal atrial fibrillation; E86.0 Dehydration; E87.6 Hypokalemia; E86.1 Hypovolemia; Y83.8 Other surgical procedures as the cause of abnormal reaction of the patient, or of later complication, without mention of misadventure at the time of the procedure; Z85.048 Personal history of other malignant neoplasm of rectum, rectosigmoid junction, and anus; Z92.3 Personal history of irradiation; Z92.21 Personal history of antineoplastic chemotherapy; Z85.3 Personal history of malignant neoplasm of breast; Z90.10 Acquired absence of unspecified breast and nipple; Z85.828 Personal history of other malignant neoplasm of skin; Z85.118 Personal history of other malignant neoplasm of bronchus and lung; Z90.89 Acquired absence of other organs; Z87.891 Personal history of nicotine dependence
CPT/HCPCS: A4314; C1751; J0282; J0690; J1100; J1885; J2405; J2704; J3010; J3475; J3480; J7040; J7050; J7060; J7120; P9016; P9047